=== PATIENT | female | born 2000 | race Caucasian/White ===

== ENCOUNTER → 2024-12-17 11:05 | Outpatient (REF) | payer BC, SELFPAY | LOC: RCS 11:05 | PROVIDERS: ATTENDING PHYSICIAN Internal Medicine Clinical Cardiac Electrophysiology; FAMILY PHYSICIAN Nurse Practitioner Family; OTHER PHYSICIAN Physician Assistant | DX: I47.10 Supraventricular tachycardia, unspecified (principal) | CPT/HCPCS: 93306 ==